=== PATIENT | female | born 1990 | race Caucasian/White ===

== ENCOUNTER 2022-08-15 15:42 | Emergency (ER) | payer OTHER ==
[~2022-08-15] VITALS: Ht 157.5 cm; Wt 54.4 kg
[2022-08-15] MEDS ORDERED: LEVETIRACETAM (500MG) 1,000 MG in IV NS 0.9% 100 ML IV STA ×4 (15:52)
[2022-08-15] MEDS ORDERED: IV NS 0.9% 1,000 ML BAG IV ONE (16:00)
[2022-08-15] MEDS ORDERED: LORAZEPAM INJ 2 MG/ML VIAL ONE (16:07)
--- NOTE | 2022-08-15 16:16 | NUR ---
noemí started at 0612 end time 1610
--- NOTE | 2022-08-15 16:17 | NUR ---
noemí start time 1616 end time [id number]
--- NOTE | 2022-08-15 16:18 | NUR ---
Queenie hobbs in [facility] - 08/21/22 at 1140 by MECCA noemí started at 1617 end time [id number]
--- NOTE | 2022-08-15 16:22 | NUR ---
PT COMES A/OX4 AWAKE, POST SEIZURE NO S/S OF DISTRESS STATES HAS A HISTORY OF SEIZURES HAD BEEN STRESSED AT WORK. C/O: SEIZURE ACTIVITY SEIZURE PRECAUTIONS INPLACE BED LOCKED IN LOWEST POSTION
[2022-08-15 16:36] LABS: BASOPHILS % (AUTO) 0.2 % (0.0-2.0); EOSINOPHILS % (AUTO) 0.2 % (0.0-6.0); HEMATOCRIT 38 % (33-45); HEMOGLOBIN 12.4 g/dL (11.5-14.8); LYMPHOCYTES # (AUTO) 1.9 K/uL (0.8-4.8); LYMPHOCYTES % (AUTO) 22.7 % (20.0-44.0); MEAN CORPUSCULAR HGB CONC 33 g/dl (31.0-36.0); MEAN CORPUSCULAR VOLUME 94 fL (82-100); MONOCYTES # (AUTO) 0.4 K/uL (0.1-1.30); MONOCYTES % (AUTO) 4.6 % (2.0-12.0); NEUTROPHILS # (AUTO) 6.2 K/uL (1.8-8.9); NEUTROPHILS % (AUTO) 72.3 % (43.0-81.0); PLATELET COUNT (AUTO) 218 K/uL (150-450); RED BLOOD CELL COUNT(AUTO) 4.02 MIL/uL (4.0-5.2); WHITE BLOOD COUNT (AUTO) 8.6 K/uL (4.3-11.0)
[2022-08-15 16:44] LABS: CALCIUM, SERUM 9.1 mg/dL (8.5-10.1); CREATININE 0.9 mg/dL (0.6-1.3); POTASSIUM 3.6 mmol/L (3.5-5.1)
[2022-08-15] MEDS ORDERED: ACETAMINOPHEN ES 500 MG TABLET ONE (17:15)
[2022-08-15] MEDS ORDERED: ACETAMINOPHEN 325 MG TABLET PO ONE (17:30)
[2022-08-15 17:58] VITALS: BP 124/75
== END 2022-08-15 17:59 | disposition home or self-care (01) ==
LOC: ER 15:44
DX: R56.9 Unspecified convulsions (principal); F41.9 Anxiety disorder, unspecified
CPT/HCPCS: 99284; 96365; 96366; 85025; 80048; 36415; J7030 ×3; J1953 ×2; J2060